=== PATIENT | male | born 1965 ===

== ENCOUNTER 2017-07-27 13:13 | Inpatient (IN) ==
[2017-07-27] MEDS ORDERED: NALOXONE 0.4 MG/ML VIAL IV STA (13:45)
[2017-07-27] MEDS ORDERED: NALOXONE 0.4 MG/ML VIAL ONE (14:04)
[2017-07-27 14:10] LABS: Basophils % 0.3 % (0.0-0.8); Eosinophils % 1.3 % (0.00-10.9); Hematocrit 20.3 VOL% (42.0-52.0); Hemoglobin 7.1 GM/DL (14.0-18.0); Lymphocytes % 6.9 % (21.2-54.2); Mean Corpuscular Hemoglobin 32 PG (27-34); Mean Corpuscular Volume 91.9 FL (87-102); Mean Platelet Volume 13.2 FL (9.6-12.0); Monocytes % 8.2 % (1.7-12.7); Neutrophils % 82.1 % (38.7-73.9); Platelet Count 164 T/CUMM (130-400); Red Blood Count 2.21 MC/CUMM (3.8-5.5); Red Cell Distribution Width 16.1 % (9.3-17.3); White Blood Count 17.7 T/CUMM (4-12)
[2017-07-27 14:11] LABS: Basophils # 0.1 10*3/uL (0.0-0.2); Eosinophils # 0.2 10*3/uL (0.0-0.87); Immature Granulocytes % 1.2 %; Immature Granulocytes Absolute 0.21 #; Lymphocytes # 1.2 10*3/uL (1.4-4.0); Monocytes # 1.5 10*3/uL (0.11-0.8); Neutrophils # 14.5 10*3/uL (1.4-7.4)
[2017-07-27 14:15] LABS: INR 1.1; PT Patient Result 11.4 SECS
[2017-07-27] MEDS ORDERED: VANCOMYCIN INJ 1,000 MG in SODIUM CHLORIDE 0.9% 250 ML IV STA (14:16)
[2017-07-27 14:22] LABS: Lactic Acid 1.3 MMOL/L (0.4-2.0)
[2017-07-27 14:23] LABS: Albumin 2.3 G/DL (3.4-5.0); Bilirubin,Total 0.4 MG/DL (0.2-1.0); Calcium 8.5 MG/DL (8.5-10.1); Osmolality,Calculated 293.4 MOS/KG (273-304); Total Protein 6.6 G/DL (6.4-8.3)
[2017-07-27 14:24] LABS: Troponin I Only 0.081 NG/ML (0.00-0.045)
[2017-07-27 14:25] LABS: Potassium 2.4 MMOL/L (3.5-5.1)
[2017-07-27] MEDS ORDERED: VANCOMYCIN 1,000 MG VIAL ONE (14:27)
[2017-07-27] MEDS ORDERED: ONDANSETRON 4 MG/2 ML VIAL IV PRN (17:19)
[2017-07-27] MEDS ORDERED: ACETAMINOPHEN 325 MG TABLET PO PRN (17:19)
[2017-07-27] MEDS ORDERED: SODIUM CHLORIDE 0.9% 1,000 ML IV PRN (17:28)
[2017-07-27] MEDS ORDERED: GLUCAGON 1 MG VIAL IM PRN (17:29)
[2017-07-27] MEDS ORDERED: DEXTROSE 50% 25 GM/50 ML VIAL IV PRN (17:29)
[2017-07-27] MEDS ORDERED: POTASSIUM CHLORIDE 20 MEQ/15 ML UDCUP PER TUBE ONE (18:00)
[2017-07-27] MEDS ORDERED: CEFEPIME IV SCH (19:30)
[2017-07-27] MEDS ORDERED: SODIUM CHLORIDE 0.9% IV SCH (19:30)
[2017-07-27] MEDS: INSULIN LISPRO 100 UNIT/ML SUBCUT SCH (21:00)
[2017-07-27] MEDS ORDERED: ALBUTEROL 2.5 MG/3 ML NEB RESP TX PRN (21:00)
[2017-07-27] MEDS: ISOSORBIDE DINITRATE 20 MG TABLET PEG SCH (21:23)
[2017-07-28 05:18] LABS: Basophils # 0.1 10*3/uL (0.0-0.2); Basophils % 0.5 % (0.0-0.8); Eosinophils # 0.6 10*3/uL (0.0-0.87); Eosinophils % 3.9 % (0.00-10.9); Hematocrit 30.4 VOL% (42.0-52.0); Hemoglobin 10.9 GM/DL (14.0-18.0); Immature Granulocytes % 0.6 %; Immature Granulocytes Absolute 0.09 #; Lymphocytes # 1.5 10*3/uL (1.4-4.0); Lymphocytes % 10.2 % (21.2-54.2); Mean Corpuscular HGB Conc 35.9 GM/DL (32-36); Mean Corpuscular Hemoglobin 32 PG (27-34); Mean Corpuscular Volume 89.9 FL (87-102); Mean Platelet Volume 13.1 FL (9.6-12.0); Monocytes # 1.4 10*3/uL (0.11-0.8); Monocytes % 9.3 % (1.7-12.7); Neutrophils # 11.3 10*3/uL (1.4-7.4); Neutrophils % 75.5 % (38.7-73.9); Platelet Count 158 T/CUMM (130-400); Red Cell Distribution Width 15.5 % (9.3-17.3)
[2017-07-28 05:33] LABS: Red Blood Count 3.38 MC/CUMM (3.8-5.5)
[2017-07-28 05:40] LABS: Calcium 8.3 MG/DL (8.5-10.1); Osmolality,Calculated 300.5 MOS/KG (273-304); Potassium 3.4 MMOL/L (3.5-5.1)
[2017-07-28] MEDS: ISOSORBIDE DINITRATE 20 MG TABLET PEG SCH ×2 (10:25→21:04)
[2017-07-28] MEDS: PANTOPRAZOLE 40 MG TABLET PO SCH (10:25)
[2017-07-28] MEDS: CEFEPIME IV SCH (10:26)
[2017-07-28] MEDS: INSULIN LISPRO 100 UNIT/ML SUBCUT SCH ×4 (10:26→21:03)
[2017-07-29] MEDS: POTASSIUM CHLORIDE 20 MEQ TABLET PO PRN ×2 (00:03→03:23)
[2017-07-29 04:12] LABS: Basophils # 0.1 10*3/uL (0.0-0.2); Basophils % 0.4 % (0.0-0.8); Eosinophils # 0.4 10*3/uL (0.0-0.87); Eosinophils % 2.8 % (0.00-10.9); Hemoglobin 11.2 GM/DL (14.0-18.0); Immature Granulocytes % 0.5 %; Immature Granulocytes Absolute 0.06 #; Lymphocytes % 15.4 % (21.2-54.2); Mean Corpuscular HGB Conc 36.1 GM/DL (32-36); Mean Corpuscular Hemoglobin 32 PG (27-34); Mean Corpuscular Volume 89.1 FL (87-102); Mean Platelet Volume 12.9 FL (9.6-12.0); Monocytes # 1.4 10*3/uL (0.11-0.8); Monocytes % 10.9 % (1.7-12.7); Neutrophils # 9.2 10*3/uL (1.4-7.4); Platelet Count 177 T/CUMM (130-400); Red Blood Count 3.48 MC/CUMM (3.8-5.5); Red Cell Distribution Width 16.2 % (9.3-17.3); White Blood Count 13.1 T/CUMM (4-12)
[2017-07-29 04:32] LABS: Calcium 8.4 MG/DL (8.5-10.1); Osmolality,Calculated 288.2 MOS/KG (273-304); Potassium 3.6 MMOL/L (3.5-5.1)
[2017-07-29 04:33] LABS: Calcium 8.4 MG/DL (8.5-10.1); Osmolality,Calculated 289.2 MOS/KG (273-304); Potassium 3.6 MMOL/L (3.5-5.1)
[2017-07-29] MEDS: ISOSORBIDE DINITRATE 20 MG TABLET PEG SCH ×2 (08:24→21:23)
[2017-07-29] MEDS: PANTOPRAZOLE 40 MG TABLET PO SCH (08:24)
[2017-07-29] MEDS: INSULIN LISPRO 100 UNIT/ML SUBCUT SCH ×4 (08:24→20:52)
[2017-07-29] MEDS: CEFEPIME IV SCH (08:24)
[2017-07-30 05:11] LABS: Basophils # 0.1 10*3/uL (0.0-0.2); Basophils % 0.4 % (0.0-0.8); Eosinophils # 0.5 10*3/uL (0.0-0.87); Eosinophils % 3.5 % (0.00-10.9); Hematocrit 32.1 VOL% (42.0-52.0); Hemoglobin 10.9 GM/DL (14.0-18.0); Immature Granulocytes % 0.8 %; Immature Granulocytes Absolute 0.11 #; Lymphocytes # 3.2 10*3/uL (1.4-4.0); Mean Corpuscular Hemoglobin 31 PG (27-34); Mean Corpuscular Volume 91.5 FL (87-102); Mean Platelet Volume 12.8 FL (9.6-12.0); Monocytes # 1.3 10*3/uL (0.11-0.8); Monocytes % 9.1 % (1.7-12.7); Neutrophils # 9.3 10*3/uL (1.4-7.4); Neutrophils % 64.2 % (38.7-73.9); Platelet Count 216 T/CUMM (130-400); Red Blood Count 3.51 MC/CUMM (3.8-5.5); Red Cell Distribution Width 16.1 % (9.3-17.3); White Blood Count 14.5 T/CUMM (4-12)
[2017-07-30 05:54] LABS: Calcium 8.5 MG/DL (8.5-10.1); Osmolality,Calculated 295.4 MOS/KG (273-304); Potassium 4.3 MMOL/L (3.5-5.1); Prealbumin 20.5 MG/DL (20-40)
[2017-07-30 05:59] LABS: Microcytosis 1+
[2017-07-30 06:00] LABS: Platelet Estimate Normal
[2017-07-30] MEDS ORDERED: DEXTROSE 50% 25 GM/50 ML VIAL IV PRN (07:15)
[2017-07-30] MEDS ORDERED: GLUCAGON 1 MG VIAL IM PRN (07:15)
[2017-07-30] MEDS ORDERED: VANCOMYCIN INJ 750 MG in SODIUM CHLORIDE 0.9% 250 ML IV PRN (09:00)
[2017-07-30] MEDS ORDERED: VANCOMYCIN INJ 500 MG in SODIUM CHLORIDE 0.9% 100 ML IV PRN (09:00)
[2017-07-30] MEDS: CEFEPIME IV SCH (10:26)
[2017-07-30] MEDS: PANTOPRAZOLE 40 MG TABLET PO SCH (10:41)
[2017-07-30] MEDS: ISOSORBIDE DINITRATE 20 MG TABLET PEG SCH ×2 (10:41→21:13)
[2017-07-30] MEDS: INSULIN LISPRO 100 UNIT/ML SUBCUT SCH ×2 (13:55→18:47)
[2017-07-30] MEDS: ZINC OXIDE PASTE 113 GM TUBE TOP SCH ×2 (14:15→21:13)
[2017-07-30] MEDS ORDERED: VANCOMYCIN INJ 500 MG in SODIUM CHLORIDE 0.9% 100 ML IV ONE (18:00)
[2017-07-30] MEDS: BACITRACIN OINT 0.9 GM PACK TOP SCH (18:35)
[2017-07-31] MEDS: INSULIN LISPRO 100 UNIT/ML SUBCUT SCH ×4 (00:52→18:10)
[2017-07-31 01:34] LABS: Apearance,Urine CLOUDY (Clear); Bilirubin,Urine Negative (Negative); Blood, Urine Moderate mg/dL (Negative); Glucose,Urine (UA) 150 mg/dL (Negative); Ketones,Urine Negative (Negative); Nitrite,Urine Negative (Negative); Protein,Urine >=500 MG/DL; RBC,Urine 34 /HPF (0-4); Squamous Epithelial Cell,Urine Occasional /HPF (0-10); Urine Color Yellow (Yellow); Urine Specific Gravity 1.012 (1.001-1.035); Urine Urobilinogen < 2.0 EU/DL (0.2-1.0); WBC,Urine 45 /HPF (0-6)
[2017-07-31 06:37] LABS: Basophils # 0.1 10*3/uL (0.0-0.2); Basophils % 0.4 % (0.0-0.8); Eosinophils # 0.4 10*3/uL (0.0-0.87); Hematocrit 32.4 VOL% (42.0-52.0); Hemoglobin 11.3 GM/DL (14.0-18.0); Immature Granulocytes % 0.7 %; Lymphocytes # 2.9 10*3/uL (1.4-4.0); Lymphocytes % 20.6 % (21.2-54.2); Mean Corpuscular HGB Conc 34.9 GM/DL (32-36); Mean Corpuscular Hemoglobin 32 PG (27-34); Mean Corpuscular Volume 90.5 FL (87-102); Mean Platelet Volume 12.5 FL (9.6-12.0); Monocytes # 1.2 10*3/uL (0.11-0.8); Monocytes % 8.2 % (1.7-12.7); Neutrophils # 9.5 10*3/uL (1.4-7.4); Neutrophils % 67.1 % (38.7-73.9); Platelet Count 260 T/CUMM (130-400); Red Blood Count 3.58 MC/CUMM (3.8-5.5); White Blood Count 14.1 T/CUMM (4-12)
[2017-07-31 07:05] LABS: Albumin 2.4 G/DL (3.4-5.0); Bilirubin,Total 0.7 MG/DL (0.2-1.0); Calcium 8.5 MG/DL (8.5-10.1); Osmolality,Calculated 302.2 MOS/KG (273-304); Potassium 4.5 MMOL/L (3.5-5.1); Total Protein 6.6 G/DL (6.4-8.3)
[2017-07-31 07:08] LABS: Eosinophils 4 % (0-10); Lymphocytes 22 % (20-55); Platelet Estimate Adequate; Segmented Neutrophils 67 % (50-85); Total Cells Counted 100
[2017-07-31 07:09] LABS: Giant Platelets Few; Hypochromasia Slight; Microcytosis Slight
[2017-07-31] MEDS: PANTOPRAZOLE 40 MG TABLET PO SCH (08:02)
[2017-07-31] MEDS: BACITRACIN OINT 0.9 GM PACK TOP SCH (08:02)
[2017-07-31] MEDS: ZINC OXIDE PASTE 113 GM TUBE TOP SCH ×2 (08:02→22:00)
[2017-07-31] MEDS: ISOSORBIDE DINITRATE 20 MG TABLET PEG SCH ×2 (08:02→22:01)
[2017-07-31] MEDS ORDERED: VANCOMYCIN INJ 500 MG in SODIUM CHLORIDE 0.9% 100 ML IV ONE (12:00)
[2017-07-31] MEDS: hydrALAZINE 20 MG/1 ML VIAL IV PRN (16:17)
[2017-08-01] MEDS: INSULIN LISPRO 100 UNIT/ML SUBCUT SCH ×4 (00:10→18:24)
[2017-08-01] MEDS: ZINC OXIDE PASTE 113 GM TUBE TOP SCH ×2 (08:52→20:41)
[2017-08-01] MEDS: PANTOPRAZOLE 40 MG TABLET PO SCH (08:52)
[2017-08-01] MEDS: BACITRACIN OINT 0.9 GM PACK TOP SCH (08:52)
[2017-08-01] MEDS: ISOSORBIDE DINITRATE 20 MG TABLET PEG SCH ×2 (08:52→20:40)
[2017-08-02] MEDS: INSULIN LISPRO 100 UNIT/ML SUBCUT SCH ×4 (00:30→17:10)
[2017-08-02] MEDS: hydrALAZINE 20 MG/1 ML VIAL IV PRN (05:53)
[2017-08-02 07:10] LABS: Calcium 8.3 MG/DL (8.5-10.1); Osmolality,Calculated 296.2 MOS/KG (273-304); Potassium 4.7 MMOL/L (3.5-5.1)
[2017-08-02] MEDS: ZINC OXIDE PASTE 113 GM TUBE TOP SCH ×2 (10:30→21:23)
[2017-08-02] MEDS: ISOSORBIDE DINITRATE 20 MG TABLET PEG SCH ×2 (10:30→21:23)
[2017-08-02] MEDS: PANTOPRAZOLE 40 MG TABLET PO SCH (10:30)
[2017-08-02] MEDS: BACITRACIN OINT 0.9 GM PACK TOP SCH (10:30)
[2017-08-03] MEDS: INSULIN LISPRO 100 UNIT/ML SUBCUT SCH ×4 (01:57→17:23)
[2017-08-03 07:57] LABS: Basophils # 0.1 10*3/uL (0.0-0.2); Basophils % 0.6 % (0.0-0.8); Eosinophils # 0.5 10*3/uL (0.0-0.87); Eosinophils % 4.1 % (0.00-10.9); Hematocrit 32.4 VOL% (42.0-52.0); Hemoglobin 10.9 GM/DL (14.0-18.0); Immature Granulocytes % 0.7 %; Immature Granulocytes Absolute 0.09 #; Lymphocytes # 2.9 10*3/uL (1.4-4.0); Lymphocytes % 22.7 % (21.2-54.2); Mean Corpuscular HGB Conc 33.6 GM/DL (32-36); Mean Corpuscular Hemoglobin 32 PG (27-34); Mean Corpuscular Volume 94.7 FL (87-102); Mean Platelet Volume 11.6 FL (9.6-12.0); Monocytes # 0.8 10*3/uL (0.11-0.8); Monocytes % 5.9 % (1.7-12.7); Neutrophils # 8.3 10*3/uL (1.4-7.4); Platelet Count 340 T/CUMM (130-400); Red Blood Count 3.42 MC/CUMM (3.8-5.5); Red Cell Distribution Width 15.2 % (9.3-17.3); White Blood Count 12.6 T/CUMM (4-12)
[2017-08-03 08:21] LABS: Calcium 8.4 MG/DL (8.5-10.1); Osmolality,Calculated 305.2 MOS/KG (273-304); Potassium 4.8 MMOL/L (3.5-5.1)
[2017-08-03] MEDS ORDERED: cloNIDine 0.3 MG/24 HR PATCH TRANSDERM SCH (09:00)
[2017-08-03] MEDS: BACITRACIN OINT 0.9 GM PACK TOP SCH (10:03)
[2017-08-03] MEDS: ISOSORBIDE DINITRATE 20 MG TABLET PEG SCH ×2 (10:06→21:31)
[2017-08-03] MEDS: ZINC OXIDE PASTE 113 GM TUBE TOP SCH ×2 (10:06→21:31)
[2017-08-03] MEDS: PANTOPRAZOLE 40 MG TABLET PO SCH (10:06)
[2017-08-03] MEDS: hydrALAZINE 20 MG/1 ML VIAL IV PRN (10:15)
[2017-08-03] MEDS: METOPROLOL TARTRATE 100 MG TABLET PEG SCH ×2 (13:23→21:31)
[2017-08-03] MEDS: ZINC OXIDE 20% OINT 28.35 GM TUBE TOP SCH ×2 (13:23→17:30)
[2017-08-03] MEDS: SIMVASTATIN 20 MG TABLET PEG SCH (21:31)
[2017-08-04] MEDS: INSULIN LISPRO 100 UNIT/ML SUBCUT SCH ×4 (01:43→17:41)
[2017-08-04] MEDS: ZINC OXIDE 20% OINT 28.35 GM TUBE TOP SCH ×3 (04:33→17:42)
[2017-08-04 07:17] LABS: Basophils # 0.1 10*3/uL (0.0-0.2); Basophils % 0.6 % (0.0-0.8); Eosinophils # 0.6 10*3/uL (0.0-0.87); Eosinophils % 4.5 % (0.00-10.9); Hematocrit 31.5 VOL% (42.0-52.0); Hemoglobin 10.6 GM/DL (14.0-18.0); Immature Granulocytes % 0.8 %; Lymphocytes % 23.8 % (21.2-54.2); Mean Corpuscular HGB Conc 33.7 GM/DL (32-36); Mean Corpuscular Hemoglobin 32 PG (27-34); Mean Corpuscular Volume 93.8 FL (87-102); Mean Platelet Volume 10.9 FL (9.6-12.0); Monocytes # 0.6 10*3/uL (0.11-0.8); Monocytes % 4.9 % (1.7-12.7); Neutrophils # 8.2 10*3/uL (1.4-7.4); Neutrophils % 65.4 % (38.7-73.9); Platelet Count 361 T/CUMM (130-400); Red Blood Count 3.36 MC/CUMM (3.8-5.5); Red Cell Distribution Width 15.1 % (9.3-17.3); White Blood Count 12.5 T/CUMM (4-12)
[2017-08-04 08:24] LABS: Albumin 2.3 G/DL (3.4-5.0); Bilirubin,Total 0.4 MG/DL (0.2-1.0); Calcium 8.6 MG/DL (8.5-10.1); Osmolality,Calculated 308.5 MOS/KG (273-304); Potassium 4.7 MMOL/L (3.5-5.1)
[2017-08-04] MEDS: amLODIPine 10 MG TABLET PEG SCH (09:05)
[2017-08-04] MEDS: LOSARTAN/HCTZ 50-12.5 MG TABLET PEG SCH (09:05)
[2017-08-04] MEDS: ISOSORBIDE DINITRATE 20 MG TABLET PEG SCH ×2 (09:05→22:08)
[2017-08-04] MEDS: PANTOPRAZOLE 40 MG TABLET PO SCH (09:05)
[2017-08-04] MEDS: METOPROLOL TARTRATE 100 MG TABLET PEG SCH ×2 (09:06→22:08)
[2017-08-04] MEDS: ZINC OXIDE PASTE 113 GM TUBE TOP SCH ×2 (09:06→22:08)
[2017-08-04] MEDS ORDERED: VANCOMYCIN INJ 500 MG in SODIUM CHLORIDE 0.9% 100 ML IV ONE (10:00)
[2017-08-04] MEDS: BACITRACIN OINT 0.9 GM PACK TOP SCH (12:28)
[2017-08-04] MEDS: SIMVASTATIN 20 MG TABLET PEG SCH (22:08)
[2017-08-05] MEDS: INSULIN LISPRO 100 UNIT/ML SUBCUT SCH ×4 (00:56→18:17)
[2017-08-05] MEDS: ZINC OXIDE 20% OINT 28.35 GM TUBE TOP SCH ×3 (01:45→18:17)
[2017-08-05] MEDS: amLODIPine 10 MG TABLET PEG SCH (09:10)
[2017-08-05] MEDS: METOPROLOL TARTRATE 100 MG TABLET PEG SCH ×2 (09:10→22:07)
[2017-08-05] MEDS: BACITRACIN OINT 0.9 GM PACK TOP SCH (09:10)
[2017-08-05] MEDS: LOSARTAN/HCTZ 50-12.5 MG TABLET PEG SCH (09:10)
[2017-08-05] MEDS: ZINC OXIDE PASTE 113 GM TUBE TOP SCH ×2 (09:10→22:08)
[2017-08-05] MEDS: ISOSORBIDE DINITRATE 20 MG TABLET PEG SCH ×2 (09:10→22:07)
[2017-08-05] MEDS: PANTOPRAZOLE 40 MG TABLET PO SCH (09:10)
[2017-08-05] MEDS: SIMVASTATIN 20 MG TABLET PEG SCH (22:07)
[2017-08-06] MEDS: INSULIN LISPRO 100 UNIT/ML SUBCUT SCH ×4 (01:06→18:18)
[2017-08-06] MEDS: ZINC OXIDE 20% OINT 28.35 GM TUBE TOP SCH ×3 (04:36→18:11)
[2017-08-06 05:26] LABS: Basophils # 0.1 10*3/uL (0.0-0.2); Basophils % 0.6 % (0.0-0.8); Eosinophils # 0.5 10*3/uL (0.0-0.87); Eosinophils % 3.2 % (0.00-10.9); Hematocrit 32.8 VOL% (42.0-52.0); Hemoglobin 11.1 GM/DL (14.0-18.0); Immature Granulocytes % 0.6 %; Immature Granulocytes Absolute 0.08 #; Lymphocytes # 2.4 10*3/uL (1.4-4.0); Mean Corpuscular HGB Conc 33.8 GM/DL (32-36); Mean Corpuscular Hemoglobin 31 PG (27-34); Mean Corpuscular Volume 92.4 FL (87-102); Mean Platelet Volume 11.2 FL (9.6-12.0); Monocytes # 0.5 10*3/uL (0.11-0.8); Monocytes % 3.7 % (1.7-12.7); Neutrophils # 10.7 10*3/uL (1.4-7.4); Neutrophils % 74.9 % (38.7-73.9); Platelet Count 388 T/CUMM (130-400); Red Blood Count 3.55 MC/CUMM (3.8-5.5); Red Cell Distribution Width 14.6 % (9.3-17.3); White Blood Count 14.2 T/CUMM (4-12)
[2017-08-06 06:03] LABS: Albumin 2.5 G/DL (3.4-5.0); Calcium 8.7 MG/DL (8.5-10.1); Osmolality,Calculated 318.5 MOS/KG (273-304); Potassium 5.3 MMOL/L (3.5-5.1); Total Protein 7.1 G/DL (6.4-8.3)
[2017-08-06] MEDS: LOSARTAN/HCTZ 50-12.5 MG TABLET PEG SCH (08:12)
[2017-08-06] MEDS: METOPROLOL TARTRATE 100 MG TABLET PEG SCH ×2 (08:12→22:10)
[2017-08-06] MEDS: amLODIPine 10 MG TABLET PEG SCH (08:12)
[2017-08-06] MEDS: ISOSORBIDE DINITRATE 20 MG TABLET PEG SCH ×2 (08:12→22:10)
[2017-08-06] MEDS: PANTOPRAZOLE 40 MG TABLET PO SCH (08:12)
[2017-08-06] MEDS: BACITRACIN OINT 0.9 GM PACK TOP SCH (10:08)
[2017-08-06] MEDS: ZINC OXIDE PASTE 113 GM TUBE TOP SCH ×2 (10:08→22:10)
[2017-08-06] MEDS ORDERED: BUPIVACAINE MPF 0.25% /EPI 30 ML VIAL ONE (12:14)
[2017-08-06] MEDS ORDERED: LIDOCAINE 1%/EPI INJ 20 ML VIAL ONE (12:14)
[2017-08-06] MEDS ORDERED: HEPARIN 5,000 UNIT/1 ML VIAL ONE (12:14)
[2017-08-06] MEDS ORDERED: LABETALOL 20 MG/4 ML SYRINGE IV ONE (13:36)
[2017-08-06] MEDS ORDERED: PROPOFOL 200 MG/20 ML VIAL IV ONE (13:36)
[2017-08-06] MEDS ORDERED: VANCOMYCIN INJ 500 MG in SODIUM CHLORIDE 0.9% 100 ML IV ONE ×2 (18:00→21:00)
[2017-08-06] MEDS ORDERED: HEPARIN 10,000 UNIT/10 ML VIAL IV PRN (18:00)
[2017-08-06] MEDS: SIMVASTATIN 20 MG TABLET PEG SCH (22:09)
[2017-08-07] MEDS: INSULIN LISPRO 100 UNIT/ML SUBCUT SCH ×4 (03:12→17:06)
[2017-08-07] MEDS: ZINC OXIDE 20% OINT 28.35 GM TUBE TOP SCH ×3 (03:13→17:47)
[2017-08-07 05:58] LABS: Basophils # 0.1 10*3/uL (0.0-0.2); Basophils % 0.6 % (0.0-0.8); Eosinophils # 0.2 10*3/uL (0.0-0.87); Eosinophils % 1.6 % (0.00-10.9); Hematocrit 30.4 VOL% (42.0-52.0); Hemoglobin 10.5 GM/DL (14.0-18.0); Immature Granulocytes % 0.5 %; Immature Granulocytes Absolute 0.06 #; Lymphocytes # 2.1 10*3/uL (1.4-4.0); Lymphocytes % 17.5 % (21.2-54.2); Mean Corpuscular HGB Conc 34.5 GM/DL (32-36); Mean Corpuscular Hemoglobin 32 PG (27-34); Mean Corpuscular Volume 91.6 FL (87-102); Mean Platelet Volume 11.3 FL (9.6-12.0); Monocytes # 0.6 10*3/uL (0.11-0.8); Neutrophils # 9.1 10*3/uL (1.4-7.4); Neutrophils % 74.8 % (38.7-73.9); Platelet Count 385 T/CUMM (130-400); Red Blood Count 3.32 MC/CUMM (3.8-5.5); Red Cell Distribution Width 14.6 % (9.3-17.3); White Blood Count 12.2 T/CUMM (4-12)
[2017-08-07 06:27] LABS: Calcium 8.4 MG/DL (8.5-10.1); Osmolality,Calculated 286.2 MOS/KG (273-304); Potassium 4.8 MMOL/L (3.5-5.1)
[2017-08-07] MEDS: PANTOPRAZOLE 40 MG TABLET PO SCH (09:04)
[2017-08-07] MEDS: CALCIUM (CARBONATE) 500 MG TABLET PO SCH ×3 (09:04→21:40)
[2017-08-07] MEDS: amLODIPine 10 MG TABLET PEG SCH (09:04)
[2017-08-07] MEDS: LOSARTAN/HCTZ 50-12.5 MG TABLET PEG SCH (09:04)
[2017-08-07] MEDS: ISOSORBIDE DINITRATE 20 MG TABLET PEG SCH ×2 (09:04→21:40)
[2017-08-07] MEDS: BACITRACIN OINT 0.9 GM PACK TOP SCH (09:05)
[2017-08-07] MEDS: METOPROLOL TARTRATE 100 MG TABLET PEG SCH (09:05)
[2017-08-07] MEDS: ZINC OXIDE PASTE 113 GM TUBE TOP SCH ×2 (09:05→22:01)
[2017-08-07] MEDS: METOPROLOL TARTRATE 50 MG TABLET PEG SCH (21:40)
[2017-08-07] MEDS: SIMVASTATIN 20 MG TABLET PEG SCH (21:41)
[2017-08-08] MEDS: ZINC OXIDE 20% OINT 28.35 GM TUBE TOP SCH ×2 (04:13→14:39)
[2017-08-08 06:21] LABS: Basophils # 0.1 10*3/uL (0.0-0.2); Basophils % 0.6 % (0.0-0.8); Eosinophils # 0.3 10*3/uL (0.0-0.87); Eosinophils % 2.6 % (0.00-10.9); Hematocrit 28.5 VOL% (42.0-52.0); Hemoglobin 9.6 GM/DL (14.0-18.0); Immature Granulocytes % 0.4 %; Immature Granulocytes Absolute 0.05 #; Lymphocytes % 24.3 % (21.2-54.2); Mean Corpuscular HGB Conc 33.7 GM/DL (32-36); Mean Corpuscular Hemoglobin 32 PG (27-34); Mean Platelet Volume 11.1 FL (9.6-12.0); Monocytes # 0.7 10*3/uL (0.11-0.8); Monocytes % 5.8 % (1.7-12.7); Neutrophils # 8.3 10*3/uL (1.4-7.4); Neutrophils % 66.3 % (38.7-73.9); Platelet Count 320 T/CUMM (130-400); Red Cell Distribution Width 14.3 % (9.3-17.3); White Blood Count 12.5 T/CUMM (4-12)
[2017-08-08 06:48] LABS: Calcium 8.8 MG/DL (8.5-10.1); Osmolality,Calculated 294.2 MOS/KG (273-304); Potassium 4.5 MMOL/L (3.5-5.1)
[2017-08-08] MEDS: INSULIN LISPRO 100 UNIT/ML SUBCUT SCH ×3 (07:15→14:28)
[2017-08-08] MEDS ORDERED: VANCOMYCIN INJ 750 MG in SODIUM CHLORIDE 0.9% 250 ML IV PRN (08:00)
[2017-08-08] MEDS: ISOSORBIDE DINITRATE 20 MG TABLET PEG SCH (10:01)
[2017-08-08] MEDS: LOSARTAN/HCTZ 50-12.5 MG TABLET PEG SCH (10:01)
[2017-08-08] MEDS: METOPROLOL TARTRATE 50 MG TABLET PEG SCH (10:01)
[2017-08-08] MEDS: amLODIPine 10 MG TABLET PEG SCH (10:02)
[2017-08-08] MEDS: PANTOPRAZOLE 40 MG TABLET PO SCH (10:02)
[2017-08-08] MEDS: CALCIUM (CARBONATE) 500 MG TABLET PO SCH ×2 (10:02→14:39)
[2017-08-08] MEDS ORDERED: VANCOMYCIN INJ 750 MG in SODIUM CHLORIDE 0.9% 250 ML IV ONE (12:00)
[2017-08-08] MEDS: ZINC OXIDE PASTE 113 GM TUBE TOP SCH (14:39)
[2017-08-08] MEDS: BACITRACIN OINT 0.9 GM PACK TOP SCH (14:39)
[2017-08-08 15:41] VITALS: BP 155/80
== END 2017-08-08 17:48 | DRG 871 ==
LOC: EDBD → EDUNIT# → N.ED 13:13 → SUATTDRO 15:37 → N.EDINP 15:37 → N.2E 16:29
PROVIDERS: ADMIT Internal Medicine; ATTEND Internal Medicine

== ENCOUNTER 2017-08-17 17:59 | Inpatient (IN) ==
[2017-08-17] MEDS ORDERED: PANTOPRAZOLE 40 MG VIAL IV STA (18:30)
[2017-08-17] MEDS ORDERED: PANTOPRAZOLE 40 MG VIAL IV ONE ×4 (18:48→22:42)
[2017-08-17 19:27] LABS: INR 1.1; PT Patient Result 11.6 SECS
[2017-08-17 19:31] LABS: Basophils % 0.3 % (0.0-0.8); Eosinophils # 0.3 10*3/uL (0.0-0.87); Immature Granulocytes % 0.4 %; Immature Granulocytes Absolute 0.04 #; Lymphocytes # 2.6 10*3/uL (1.4-4.0); Lymphocytes % 26.2 % (21.2-54.2); Mean Corpuscular HGB Conc 34.8 GM/DL (32-36); Mean Corpuscular Hemoglobin 33 PG (27-34); Mean Platelet Volume 13.7 FL (9.6-12.0); Monocytes # 0.7 10*3/uL (0.11-0.8); Monocytes % 6.8 % (1.7-12.7); Neutrophils # 6.3 10*3/uL (1.4-7.4); Neutrophils % 63.3 % (38.7-73.9); Platelet Count 122 T/CUMM (130-400); Red Cell Distribution Width 13.6 % (9.3-17.3); White Blood Count 9.9 T/CUMM (4-12)
[2017-08-17 19:38] LABS: Hematocrit 14.1 VOL% (42.0-52.0); Hemoglobin 4.9 GM/DL (14.0-18.0)
[2017-08-17 19:42] LABS: Alanine Aminotransferase 203 U/L (16-61); Albumin 2.5 G/DL (3.4-5.0); Alkaline Phosphatase 225 U/L (45-117); Aspartate Amino Transferase 196 U/L (0-37); Bilirubin,Total < 0.39 MG/DL (0.2-1.0); Blood Urea Nitrogen 21 MG/DL (7-18); Calcium 8.4 MG/DL (8.5-10.1); Glucose 142 MG/DL (74-106); Osmolality,Calculated 277.8 MOS/KG (273-304); Potassium 3.1 MMOL/L (3.5-5.1); Sodium 137 MMOL/L (136-145); Total Protein 7.1 G/DL (6.4-8.3); Troponin I Only 0.025 NG/ML (0.00-0.045)
[2017-08-17 19:57] LABS: Partial Thromboplastin Time 54.7 SECS (0-40)
[2017-08-17] MEDS ORDERED: SODIUM CHLORIDE 0.9% 1,000 ML IV PRN (21:04)
[2017-08-17] MEDS ORDERED: ONDANSETRON 4 MG/2 ML VIAL IV PRN (21:05)
[2017-08-17] MEDS ORDERED: VANCOMYCIN 5,000 MG VIAL IV PRN (21:10)
[2017-08-17] MEDS ORDERED: DEXTROSE 50% 25 GM/50 ML VIAL IV PRN (21:12)
[2017-08-17] MEDS ORDERED: GLUCAGON 1 MG VIAL IM PRN (21:12)
[2017-08-17] MEDS ORDERED: VANCOMYCIN INJ 1,000 MG in SODIUM CHLORIDE 0.9% 250 ML IV SCH (22:00)
[2017-08-17] MEDS ORDERED: VANCOMYCIN INJ 500 MG in SODIUM CHLORIDE 0.9% 100 ML IV PRN (22:17)
[2017-08-17] MEDS: PANTOPRAZOLE INJ 200 MG in SODIUM CHLORIDE 0.9% 250 ML IV SCH (23:17)
[2017-08-18] MEDS: hydrALAZINE 20 MG/1 ML VIAL IV PRN (00:13)
[2017-08-18] MEDS: INSULIN REGULAR 100 UNIT/ML SUBCUT SCH ×4 (00:15→18:14)
[2017-08-18 04:36] LABS: Basophils # 0.1 10*3/uL (0.0-0.2); Eosinophils # 0.3 10*3/uL (0.0-0.87); Eosinophils % 3.6 % (0.00-10.9); Hematocrit 25.1 VOL% (42.0-52.0); Hemoglobin 8.6 GM/DL (14.0-18.0); Immature Granulocytes % 0.1 %; Immature Granulocytes Absolute 0.01 #; Lymphocytes # 2.3 10*3/uL (1.4-4.0); Lymphocytes % 28.8 % (21.2-54.2); Mean Corpuscular HGB Conc 34.3 GM/DL (32-36); Mean Corpuscular Hemoglobin 30 PG (27-34); Mean Platelet Volume 13.4 FL (9.6-12.0); Monocytes # 0.7 10*3/uL (0.11-0.8); Neutrophils # 4.6 10*3/uL (1.4-7.4); Neutrophils % 57.5 % (38.7-73.9); Platelet Count 112 T/CUMM (130-400); Red Blood Count 2.92 MC/CUMM (3.8-5.5); Red Cell Distribution Width 16.3 % (9.3-17.3)
[2017-08-18 05:02] LABS: Calcium 8.3 MG/DL (8.5-10.1); Osmolality,Calculated 282.7 MOS/KG (273-304); Potassium 3.3 MMOL/L (3.5-5.1)
[2017-08-18] MEDS: ALBUTEROL 2.5 MG/3 ML NEB RESP TX SCH ×4 (07:50→19:25)
[2017-08-18] MEDS: POTASSIUM CHLORIDE 20 MEQ/15 ML UDCUP PER TUBE PRN ×3 (13:43→18:15)
[2017-08-18] MEDS: PANTOPRAZOLE INJ 200 MG in SODIUM CHLORIDE 0.9% 250 ML IV SCH ×2 (23:15→23:16)
[2017-08-19] MEDS: hydrALAZINE 20 MG/1 ML VIAL IV PRN ×2 (00:31→05:32)
[2017-08-19] MEDS: INSULIN REGULAR 100 UNIT/ML SUBCUT SCH ×5 (00:47→23:41)
[2017-08-19 00:58] LABS: Basophils # 0.1 10*3/uL (0.0-0.2); Eosinophils # 0.3 10*3/uL (0.0-0.87); Eosinophils % 3.5 % (0.00-10.9); Hematocrit 25.3 VOL% (42.0-52.0); Hemoglobin 8.8 GM/DL (14.0-18.0); Immature Granulocytes % 0.3 %; Immature Granulocytes Absolute 0.02 #; Lymphocytes # 1.9 10*3/uL (1.4-4.0); Mean Corpuscular HGB Conc 34.8 GM/DL (32-36); Mean Corpuscular Hemoglobin 30 PG (27-34); Mean Corpuscular Volume 87.5 FL (87-102); Monocytes # 0.7 10*3/uL (0.11-0.8); Monocytes % 9.1 % (1.7-12.7); Neutrophils # 4.7 10*3/uL (1.4-7.4); Neutrophils % 61.1 % (38.7-73.9); Platelet Count 112 T/CUMM (130-400); Red Blood Count 2.89 MC/CUMM (3.8-5.5); Red Cell Distribution Width 16.4 % (9.3-17.3); White Blood Count 7.7 T/CUMM (4-12)
[2017-08-19] MEDS: ALBUTEROL 2.5 MG/3 ML NEB RESP TX SCH ×4 (07:20→19:48)
[2017-08-19] MEDS: ISOSORBIDE DINITRATE 20 MG TABLET PEG SCH ×2 (12:36→21:10)
[2017-08-19] MEDS: LOSARTAN/HCTZ 50-12.5 MG TABLET PEG SCH (12:37)
[2017-08-19] MEDS: amLODIPine 10 MG TABLET PEG SCH (12:37)
[2017-08-20 06:22] LABS: Basophils # 0.1 10*3/uL (0.0-0.2); Basophils % 1.1 % (0.0-0.8); Eosinophils # 0.5 10*3/uL (0.0-0.87); Hematocrit 26.3 VOL% (42.0-52.0); Hemoglobin 8.7 GM/DL (14.0-18.0); Immature Granulocytes % 0.3 %; Immature Granulocytes Absolute 0.03 #; Lymphocytes # 2.2 10*3/uL (1.4-4.0); Lymphocytes % 23.8 % (21.2-54.2); Mean Corpuscular HGB Conc 33.1 GM/DL (32-36); Mean Corpuscular Hemoglobin 31 PG (27-34); Mean Corpuscular Volume 92.6 FL (87-102); Mean Platelet Volume 12.9 FL (9.6-12.0); Monocytes # 0.7 10*3/uL (0.11-0.8); Monocytes % 7.9 % (1.7-12.7); Neutrophils # 5.8 10*3/uL (1.4-7.4); Neutrophils % 61.9 % (38.7-73.9); Platelet Count 123 T/CUMM (130-400); Red Blood Count 2.84 MC/CUMM (3.8-5.5); Red Cell Distribution Width 16.5 % (9.3-17.3); White Blood Count 9.4 T/CUMM (4-12)
[2017-08-20] MEDS: INSULIN REGULAR 100 UNIT/ML SUBCUT SCH ×3 (06:41→21:50)
[2017-08-20] MEDS: ALBUTEROL 2.5 MG/3 ML NEB RESP TX SCH ×4 (06:58→19:25)
[2017-08-20 07:04] LABS: % Iron Saturation 29.3 % (18-50); Calcium 8.7 MG/DL (8.5-10.1); Ferritin 621.9 ng/ml (26-388); Osmolality,Calculated 294.1 MOS/KG (273-304); Potassium 3.9 MMOL/L (3.5-5.1)
[2017-08-20 07:16] LABS: Folate > 24.0 NG/ML (5.4-24.0); Vitamin B12 980 PG/ML (211-911)
[2017-08-20 08:49] LABS: Sedimentation Rate-Westergren 101 MM/HR (0-20)
[2017-08-20 09:09] LABS: Hemoglobin A1 (Alkaline) 97.1 % (96.5-98.5); Hemoglobin A2 (Alkaline) 2.9 % (1.5-3.5)
[2017-08-20] MEDS: PANTOPRAZOLE 40 MG VIAL IV SCH (09:29)
[2017-08-20] MEDS: amLODIPine 10 MG TABLET PEG SCH (09:35)
[2017-08-20] MEDS: ISOSORBIDE DINITRATE 20 MG TABLET PEG SCH ×2 (09:35→21:49)
[2017-08-20] MEDS: LOSARTAN/HCTZ 50-12.5 MG TABLET PEG SCH (09:35)
[2017-08-20] MEDS ORDERED: PROPOFOL 200 MG/20 ML VIAL IV ONE (12:32)
[2017-08-20] MEDS ORDERED: LIDOCAINE 2% 5 ML VIAL ONE (12:32)
[2017-08-20] MEDS ORDERED: HEPARIN 10,000 UNIT/10 ML VIAL IV PRN (15:17)
[2017-08-20] MEDS ORDERED: VANCOMYCIN INJ 500 MG in SODIUM CHLORIDE 0.9% 100 ML IV ONE (18:00)
[2017-08-21] MEDS: INSULIN REGULAR 100 UNIT/ML SUBCUT SCH ×4 (03:47→18:20)
[2017-08-21 07:24] LABS: Basophils # 0.1 10*3/uL (0.0-0.2); Basophils % 0.9 % (0.0-0.8); Eosinophils # 0.4 10*3/uL (0.0-0.87); Eosinophils % 3.6 % (0.00-10.9); Hematocrit 27.6 VOL% (42.0-52.0); Hemoglobin 9.1 GM/DL (14.0-18.0); Immature Granulocytes % 0.2 %; Immature Granulocytes Absolute 0.02 #; Lymphocytes # 2.6 10*3/uL (1.4-4.0); Lymphocytes % 25.2 % (21.2-54.2); Mean Corpuscular Hemoglobin 30 PG (27-34); Mean Platelet Volume 12.2 FL (9.6-12.0); Monocytes # 0.8 10*3/uL (0.11-0.8); Monocytes % 7.5 % (1.7-12.7); Neutrophils # 6.4 10*3/uL (1.4-7.4); Neutrophils % 62.6 % (38.7-73.9); Platelet Count 150 T/CUMM (130-400); Red Cell Distribution Width 16.8 % (9.3-17.3); White Blood Count 10.2 T/CUMM (4-12)
[2017-08-21] MEDS: ALBUTEROL 2.5 MG/3 ML NEB RESP TX SCH ×4 (07:43→20:27)
[2017-08-21 07:53] LABS: Calcium 8.6 MG/DL (8.5-10.1); Osmolality,Calculated 284.4 MOS/KG (273-304); Potassium 3.8 MMOL/L (3.5-5.1); Prealbumin 29.4 MG/DL (20-40)
[2017-08-21 07:56] LABS: Calcium 8.5 MG/DL (8.5-10.1); Osmolality,Calculated 285.4 MOS/KG (273-304); Potassium 3.9 MMOL/L (3.5-5.1)
[2017-08-21] MEDS: LOSARTAN/HCTZ 50-12.5 MG TABLET PEG SCH (08:46)
[2017-08-21] MEDS: amLODIPine 10 MG TABLET PEG SCH (08:46)
[2017-08-21] MEDS: ISOSORBIDE DINITRATE 20 MG TABLET PEG SCH ×2 (08:46→20:58)
[2017-08-21] MEDS: PANTOPRAZOLE 40 MG VIAL IV SCH (08:46)
[2017-08-21] MEDS: hydrALAZINE 20 MG/1 ML VIAL IV PRN (20:59)
[2017-08-22] MEDS: INSULIN REGULAR 100 UNIT/ML SUBCUT SCH ×3 (01:13→12:50)
[2017-08-22 06:15] LABS: Basophils # 0.1 10*3/uL (0.0-0.2); Basophils % 0.7 % (0.0-0.8); Eosinophils # 0.5 10*3/uL (0.0-0.87); Hematocrit 26.4 VOL% (42.0-52.0); Hemoglobin 8.7 GM/DL (14.0-18.0); Immature Granulocytes % 0.4 %; Immature Granulocytes Absolute 0.04 #; Lymphocytes # 2.7 10*3/uL (1.4-4.0); Mean Corpuscular Hemoglobin 31 PG (27-34); Mean Platelet Volume 12.3 FL (9.6-12.0); Monocytes # 0.8 10*3/uL (0.11-0.8); Monocytes % 7.7 % (1.7-12.7); Neutrophils # 6.6 10*3/uL (1.4-7.4); Neutrophils % 61.2 % (38.7-73.9); Platelet Count 161 T/CUMM (130-400); Red Blood Count 2.84 MC/CUMM (3.8-5.5); Red Cell Distribution Width 17.8 % (9.3-17.3); White Blood Count 10.8 T/CUMM (4-12)
[2017-08-22 06:57] LABS: Calcium 9.1 MG/DL (8.5-10.1); Osmolality,Calculated 293.3 MOS/KG (273-304); Potassium 3.7 MMOL/L (3.5-5.1)
[2017-08-22] MEDS: ALBUTEROL 2.5 MG/3 ML NEB RESP TX SCH ×3 (07:38→15:33)
[2017-08-22] MEDS: ISOSORBIDE DINITRATE 20 MG TABLET PEG SCH (08:30)
[2017-08-22] MEDS: amLODIPine 10 MG TABLET PEG SCH (08:30)
[2017-08-22] MEDS: LOSARTAN/HCTZ 50-12.5 MG TABLET PEG SCH (08:30)
[2017-08-22] MEDS: PANTOPRAZOLE 40 MG VIAL IV SCH (08:31)
[2017-08-22] MEDS ORDERED: VANCOMYCIN INJ 500 MG in SODIUM CHLORIDE 0.9% 100 ML IV ONE (16:00)
[2017-08-22 16:42] VITALS: BP 135/82
== END 2017-08-22 17:20 | DRG 377 ==
LOC: EDBD → EDUNIT# → N.ED 17:59 → SUATTDRO 21:00 → N.EDINP 21:00 → N.CC 21:29 → N.5E 08-19 14:30
PROVIDERS: ADMIT Internal Medicine Cardiovascular Disease; ATTEND Internal Medicine

== ENCOUNTER 2017-10-09 11:20 | Inpatient (IN) ==
[2017-10-09] MEDS ORDERED: LEVOFLOXACIN INJ 750 MG in PREMIX 1 EACH IV STA (11:46)
[2017-10-09] MEDS ORDERED: SODIUM CHLORIDE 0.9% 1,000 ML IV STA (11:46)
[2017-10-09 12:04] LABS: Basophils # 0.1 10*3/uL (0.0-0.2); Basophils % 0.4 % (0.0-0.8); Eosinophils # 0.1 10*3/uL (0.0-0.87); Eosinophils % 0.3 % (0.00-10.9); Hematocrit 25.8 VOL% (42.0-52.0); Hemoglobin 8.8 GM/DL (14.0-18.0); Immature Granulocytes % 1.1 %; Immature Granulocytes Absolute 0.25 #; Lymphocytes # 1.9 10*3/uL (1.4-4.0); Mean Corpuscular HGB Conc 34.1 GM/DL (32-36); Mean Corpuscular Hemoglobin 33 PG (27-34); Mean Corpuscular Volume 95.2 FL (87-102); Mean Platelet Volume 12.7 FL (9.6-12.0); Monocytes # 1.7 10*3/uL (0.11-0.8); Monocytes % 7.3 % (1.7-12.7); Neutrophils # 19.7 10*3/uL (1.4-7.4); Neutrophils % 82.9 % (38.7-73.9); Platelet Count 235 T/CUMM (130-400); Red Blood Count 2.71 MC/CUMM (3.8-5.5); Red Cell Distribution Width 17.1 % (9.3-17.3); White Blood Count 23.8 T/CUMM (4-12)
[2017-10-09 12:19] LABS: Apearance,Urine CLOUDY (Clear); Bacteria,Urine Few /HPF (Few); Bilirubin,Urine Negative (Negative); Blood, Urine Small mg/dL (Negative); Glucose,Urine (UA) Negative (Negative); Ketones,Urine Negative (Negative); Nitrite,Urine Negative (Negative); Protein,Urine 100 MG/DL; RBC,Urine 2892 /HPF (0-4); Urine Color Yellow (Yellow); Urine Specific Gravity 1.015 (1.001-1.035); Urine Urobilinogen < 2.0 EU/DL (0.2-1.0); WBC,Urine 16306 /HPF (0-6)
[2017-10-09 12:23] LABS: Alanine Aminotransferase 28 U/L (16-61); Alkaline Phosphatase 167 U/L (45-117); Aspartate Amino Transferase 40 U/L (0-37); Blood Urea Nitrogen 59 MG/DL (7-18); Glucose 393 MG/DL (74-106); Osmolality,Calculated 298.4 MOS/KG (273-304); Sodium 133 MMOL/L (136-145); Total Protein 6.8 G/DL (6.4-8.3)
[2017-10-09 12:25] LABS: Potassium 2.4 MMOL/L (3.5-5.1)
[2017-10-09 12:27] LABS: Lactic Acid 2.3 MMOL/L (0.4-2.0)
[2017-10-09] MEDS ORDERED: SODIUM CHLOR 0.9% KCL 20 MEQ 20 MEQ/1,000 ML BAG IV SCH (12:30)
[2017-10-09 12:31] LABS: Anisocytosis 1+; Band Neutrophils 20 % (0-10); Eosinophils 1 % (0-10); Lymphocytes 8 % (20-55); Platelet Estimate Normal; Segmented Neutrophils 65 % (50-85); Total Cells Counted 100
[2017-10-09 12:32] LABS: Macrocytosis Slight
[2017-10-09] MEDS ORDERED: POTASSIUM CHLORIDE RIDER 100 ML IV ONE (12:40)
[2017-10-09] MEDS: POTASSIUM CHLORIDE RIDER 10 MEQ in PREMIX 1 EACH IV SCH ×4 (13:07→19:59)
[2017-10-09] MEDS ORDERED: SODIUM CHLORIDE 0.9% 1,850 ML IV ONE (14:31)
[2017-10-09] MEDS: PIPERACILLIN/TAZOBACTAM 3,375 MG in SODIUM CHLORIDE 0.9% 100 ML IV SCH (15:19)
[2017-10-09] MEDS ORDERED: GLUCAGON 1 MG VIAL IM PRN (15:51)
[2017-10-09] MEDS ORDERED: DEXTROSE 50% 25 GM/50 ML VIAL IV PRN (15:51)
[2017-10-09] MEDS ORDERED: EPOETIN ALFA 10,000 UNIT/1 ML VIAL IV PRN (17:51)
[2017-10-09] MEDS: SODIUM CHLORIDE 0.9% 1,000 ML IV SCH (18:29)
[2017-10-09 19:27] LABS: Calcium 7.3 MG/DL (8.5-10.1); Osmolality,Calculated 295.2 MOS/KG (273-304)
[2017-10-09] MEDS: INSULIN REGULAR 100 UNIT/ML SUBCUT SCH ×2 (21:07→23:50)
[2017-10-09] MEDS ORDERED: ETOMIDATE 20 MG/10 ML VIAL IV ONE ×2 (22:02→22:20)
[2017-10-09] MEDS ORDERED: VECURONIUM 10 MG VIAL IV ONE ×2 (22:02→22:20)
[2017-10-09] MEDS ORDERED: PROPOFOL 1,000 MG/100 ML BOTTLE IV ONE (22:10)
[2017-10-09] MEDS ORDERED: FUROSEMIDE 40 MG/4 ML VIAL IV ONE (22:20)
[2017-10-09] MEDS ORDERED: ALBUTEROL/IPRATROPIUM 3 ML NEB RESP TX PRN (22:20)
[2017-10-09] MEDS: METOPROLOL TARTRATE 100 MG TABLET PEG SCH (22:41)
[2017-10-09 23:25] LABS: Calcium 7.8 MG/DL (8.5-10.1); Osmolality,Calculated 292.4 MOS/KG (273-304); Potassium 3.1 MMOL/L (3.5-5.1)
[2017-10-09 23:26] LABS: ABG Base Excess -1.1 MMOL/L (-2.5-2.5); ABG HCO3 23.5 MMOL/L (20-26); ABG Oxygen Saturation 99.2 % (95-100); ABG PCO2 40.5 MM HG (35-48); ABG PH 7.379 (7.35-7.45); ABG TCO2 21.8 MMOL/L (23-27); Allen Test Positive; Pt O2 Delivery Device Ventilator
[2017-10-09] MEDS: SEVELAMER CARBONATE POWDER 2.4 GM PACK PEG SCH (23:50)
[2017-10-10] MEDS: POTASSIUM CHLORIDE RIDER 10 MEQ in PREMIX 1 EACH IV SCH (00:09)
[2017-10-10] MEDS: PROPOFOL 1,000 MG/100 ML BOTTLE IV SCH ×3 (00:10→22:36)
[2017-10-10] MEDS: PIPERACILLIN/TAZOBACTAM 3,375 MG in SODIUM CHLORIDE 0.9% 100 ML IV SCH ×2 (00:17→12:55)
[2017-10-10 03:52] LABS: ABG Base Excess -1.2 MMOL/L (-2.5-2.5); ABG HCO3 23.5 MMOL/L (20-26); ABG Oxygen Saturation 99.9 % (95-100); ABG PCO2 33.6 MM HG (35-48); ABG PH 7.436 (7.35-7.45); ABG TCO2 20.7 MMOL/L (23-27)
[2017-10-10] MEDS: fentaNYL 100 MCG/2 ML VIAL IV PRN (04:47)
[2017-10-10 05:15] LABS: Basophils # 0.1 10*3/uL (0.0-0.2); Basophils % 0.3 % (0.0-0.8); Eosinophils # 0.1 10*3/uL (0.0-0.87); Eosinophils % 0.7 % (0.00-10.9); Hematocrit 28.8 VOL% (42.0-52.0); Hemoglobin 9.7 GM/DL (14.0-18.0); Immature Granulocytes % 1.3 %; Immature Granulocytes Absolute 0.29 #; Lymphocytes # 1.6 10*3/uL (1.4-4.0); Lymphocytes % 7.2 % (21.2-54.2); Mean Corpuscular HGB Conc 33.7 GM/DL (32-36); Mean Corpuscular Hemoglobin 32 PG (27-34); Mean Platelet Volume 12.6 FL (9.6-12.0); Monocytes # 1.5 10*3/uL (0.11-0.8); Monocytes % 7.2 % (1.7-12.7); Neutrophils # 17.9 10*3/uL (1.4-7.4); Neutrophils % 83.3 % (38.7-73.9); Platelet Count 204 T/CUMM (130-400); White Blood Count 21.5 T/CUMM (4-12)
[2017-10-10 05:46] LABS: Band Neutrophils 2 % (0-10); Hypochromasia 1+; Lymphocytes 4 % (20-55); Ovalocytes Slight; Platelet Estimate Adequate; Segmented Neutrophils 90 % (50-85); Total Cells Counted 100
[2017-10-10 05:48] LABS: Calcium 7.9 MG/DL (8.5-10.1); Osmolality,Calculated 295.1 MOS/KG (273-304); Potassium 3.1 MMOL/L (3.5-5.1)
[2017-10-10] MEDS: INSULIN REGULAR 100 UNIT/ML SUBCUT SCH ×3 (05:50→18:24)
[2017-10-10 06:22] LABS: Bilirubin,Total 0.7 MG/DL (0.2-1.0); Osmolality,Calculated 295.1 MOS/KG (273-304); Potassium 3.1 MMOL/L (3.5-5.1); Total Protein 6.8 G/DL (6.4-8.3)
[2017-10-10] MEDS: SEVELAMER CARBONATE POWDER 2.4 GM PACK PEG SCH ×2 (08:00→18:24)
[2017-10-10] MEDS ORDERED: CHLORHEXIDINE 4% SOLN 118 ML BOTTLE TOP ONE (08:22)
[2017-10-10] MEDS ORDERED: VANCOMYCIN INJ 500 MG in SODIUM CHLORIDE 0.9% 100 ML IV PRN (08:27)
[2017-10-10] MEDS: METOPROLOL TARTRATE 100 MG TABLET PEG SCH ×2 (09:00→21:08)
[2017-10-10] MEDS ORDERED: VANCOMYCIN INJ 1,500 MG in SODIUM CHLORIDE 0.9% 500 ML IV ONE (12:00)
[2017-10-10] MEDS: CHLORHEXIDINE 4% SOLN 118 ML BOTTLE TOP SCH (12:15)
[2017-10-10] MEDS: SODIUM CHLORIDE 0.9% 1,000 ML IV SCH (12:56)
[2017-10-10] MEDS: SIMVASTATIN 20 MG TABLET PEG SCH (13:00)
[2017-10-10] MEDS: RIFAMPIN 300 MG CAPSULE PEG SCH (15:10)
[2017-10-11] MEDS: INSULIN REGULAR 100 UNIT/ML SUBCUT SCH ×4 (00:57→18:31)
[2017-10-11] MEDS: PIPERACILLIN/TAZOBACTAM 3,375 MG in SODIUM CHLORIDE 0.9% 100 ML IV SCH ×2 (00:57→12:24)
[2017-10-11 05:10] LABS: ABG Base Excess 0.2 MMOL/L (-2.5-2.5); ABG HCO3 24.6 MMOL/L (20-26); ABG Oxygen Saturation 98.9 % (95-100); ABG PCO2 30.8 MM HG (35-48); ABG PH 7.476 (7.35-7.45); ABG TCO2 19.6 MMOL/L (23-27); Allen Test Positive; Pt O2 Delivery Device Ventilator
[2017-10-11 05:21] LABS: Basophils # 0.1 10*3/uL (0.0-0.2); Basophils % 0.5 % (0.0-0.8); Eosinophils # 0.3 10*3/uL (0.0-0.87); Eosinophils % 1.4 % (0.00-10.9); Hematocrit 25.7 VOL% (42.0-52.0); Hemoglobin 8.8 GM/DL (14.0-18.0); Immature Granulocytes % 0.9 %; Immature Granulocytes Absolute 0.15 #; Lymphocytes # 1.8 10*3/uL (1.4-4.0); Lymphocytes % 10.1 % (21.2-54.2); Mean Corpuscular HGB Conc 34.2 GM/DL (32-36); Mean Corpuscular Hemoglobin 32 PG (27-34); Mean Corpuscular Volume 94.5 FL (87-102); Mean Platelet Volume 12.6 FL (9.6-12.0); Monocytes # 1.4 10*3/uL (0.11-0.8); Monocytes % 8.1 % (1.7-12.7); Neutrophils # 13.7 10*3/uL (1.4-7.4); Platelet Count 241 T/CUMM (130-400); Red Blood Count 2.72 MC/CUMM (3.8-5.5); Red Cell Distribution Width 17.2 % (9.3-17.3); White Blood Count 17.4 T/CUMM (4-12)
[2017-10-11 05:58] LABS: Band Neutrophils 4 % (0-10); Eosinophils 2 % (0-10); Lymphocytes 6 % (20-55); Macrocytosis 1+; Nucleated Red Blood Cells 1 (0-5); Platelet Estimate Normal; Segmented Neutrophils 88 % (50-85); Total Cells Counted 100
[2017-10-11 06:00] LABS: Albumin 1.9 G/DL (3.4-5.0); Calcium 7.9 MG/DL (8.5-10.1); Osmolality,Calculated 298.4 MOS/KG (273-304); Potassium 2.8 MMOL/L (3.5-5.1); Total Protein 6.9 G/DL (6.4-8.3)
[2017-10-11] MEDS: SEVELAMER CARBONATE POWDER 2.4 GM PACK PEG SCH ×2 (08:55→16:09)
[2017-10-11] MEDS: RIFAMPIN 300 MG CAPSULE PEG SCH (08:56)
[2017-10-11] MEDS: METOPROLOL TARTRATE 100 MG TABLET PEG SCH ×2 (08:57→21:59)
[2017-10-11] MEDS: SIMVASTATIN 20 MG TABLET PEG SCH (08:57)
[2017-10-11] MEDS ORDERED: LEVOFLOXACIN INJ 750 MG in PREMIX 1 EACH IV SCH (09:00)
[2017-10-11] MEDS: CHLORHEXIDINE 4% SOLN 118 ML BOTTLE TOP SCH (09:40)
[2017-10-11] MEDS: SODIUM CHLORIDE 0.9% 1,000 ML IV SCH (10:43)
[2017-10-11] MEDS ORDERED: POTASSIUM CHLORIDE 20 MEQ/15 ML UDCUP PER TUBE ONE (15:38)
[2017-10-11] MEDS: HEPARIN 5,000 UNIT/1 ML VIAL SUBCUT SCH (16:15)
[2017-10-11] MEDS: PROPOFOL 1,000 MG/100 ML BOTTLE IV SCH (21:05)
[2017-10-12] MEDS: INSULIN REGULAR 100 UNIT/ML SUBCUT SCH ×4 (00:09→18:10)
[2017-10-12] MEDS: HEPARIN 5,000 UNIT/1 ML VIAL SUBCUT SCH ×2 (04:28→16:05)
[2017-10-12 04:51] LABS: ABG Base Excess -2.3 MMOL/L (-2.5-2.5); ABG HCO3 22.5 MMOL/L (20-26); ABG Oxygen Saturation 99.7 % (95-100); ABG PCO2 32.2 MM HG (35-48); ABG PH 7.431 (7.35-7.45)
[2017-10-12] MEDS: PROPOFOL 1,000 MG/100 ML BOTTLE IV SCH ×3 (05:12→22:32)
[2017-10-12 06:01] LABS: Basophils # 0.1 10*3/uL (0.0-0.2); Basophils % 0.4 % (0.0-0.8); Eosinophils # 0.7 10*3/uL (0.0-0.87); Eosinophils % 3.2 % (0.00-10.9); Hematocrit 25.6 VOL% (42.0-52.0); Hemoglobin 8.8 GM/DL (14.0-18.0); Immature Granulocytes % 0.8 %; Immature Granulocytes Absolute 0.18 #; Lymphocytes # 1.7 10*3/uL (1.4-4.0); Lymphocytes % 7.5 % (21.2-54.2); Mean Corpuscular HGB Conc 34.4 GM/DL (32-36); Mean Corpuscular Hemoglobin 32 PG (27-34); Mean Corpuscular Volume 93.4 FL (87-102); Mean Platelet Volume 12.4 FL (9.6-12.0); Monocytes # 1.1 10*3/uL (0.11-0.8); Monocytes % 4.9 % (1.7-12.7); Neutrophils # 18.5 10*3/uL (1.4-7.4); Neutrophils % 83.2 % (38.7-73.9); Platelet Count 292 T/CUMM (130-400); Red Blood Count 2.74 MC/CUMM (3.8-5.5); Red Cell Distribution Width 17.2 % (9.3-17.3); White Blood Count 22.2 T/CUMM (4-12)
[2017-10-12 06:26] LABS: Albumin 1.9 G/DL (3.4-5.0); Calcium 8.2 MG/DL (8.5-10.1); Osmolality,Calculated 302.5 MOS/KG (273-304); Potassium 3.7 MMOL/L (3.5-5.1); Total Protein 7.1 G/DL (6.4-8.3)
[2017-10-12 06:27] LABS: Band Neutrophils 1 % (0-10); Eosinophils 6 % (0-10); Giant Platelets Few; Hypochromasia 1+; Lymphocytes 6 % (20-55); Macrocytosis Slight; Ovalocytes Slight; Platelet Estimate Adequate; Segmented Neutrophils 82 % (50-85); Total Cells Counted 100
[2017-10-12] MEDS: SEVELAMER CARBONATE POWDER 2.4 GM PACK PEG SCH (08:30)
[2017-10-12] MEDS: METOPROLOL TARTRATE 100 MG TABLET PEG SCH ×2 (08:30→21:12)
[2017-10-12] MEDS: RIFAMPIN 300 MG CAPSULE PEG SCH (08:30)
[2017-10-12] MEDS: SIMVASTATIN 20 MG TABLET PEG SCH (08:30)
[2017-10-12] MEDS: fentaNYL 100 MCG/2 ML VIAL IV PRN (12:15)
[2017-10-12] MEDS: SKIN HEALING OINT (AQUAPHOR) 50 GM TUBE TOP PRN (12:30)
[2017-10-12] MEDS: CHLORHEXIDINE 4% SOLN 118 ML BOTTLE TOP SCH (12:30)
[2017-10-12] MEDS ORDERED: VANCOMYCIN INJ 500 MG in SODIUM CHLORIDE 0.9% 100 ML IV ONE (21:00)
[2017-10-13] MEDS: INSULIN REGULAR 100 UNIT/ML SUBCUT SCH ×4 (00:05→17:40)
[2017-10-13] MEDS: HEPARIN 5,000 UNIT/1 ML VIAL SUBCUT SCH ×2 (04:01→15:40)
[2017-10-13 04:14] LABS: Allen Test Positive; Pt O2 Delivery Device Ventilator
[2017-10-13 04:16] LABS: ABG Base Excess 4.3 MMOL/L (-2.5-2.5); ABG HCO3 26.9 MMOL/L (20-26); ABG Oxygen Saturation 98.8 % (95-100); ABG PCO2 32.6 MM HG (35-48); ABG PH 7.535 (7.35-7.45); ABG PO2 188.8 MM HG (80-95); ABG TCO2 27.9 MMOL/L (23-27)
[2017-10-13] MEDS: PROPOFOL 1,000 MG/100 ML BOTTLE IV SCH ×3 (04:39→21:30)
[2017-10-13 05:31] LABS: Basophils # 0.1 10*3/uL (0.0-0.2); Basophils % 0.5 % (0.0-0.8); Eosinophils # 0.6 10*3/uL (0.0-0.87); Eosinophils % 3.3 % (0.00-10.9); Hematocrit 26.7 VOL% (42.0-52.0); Hemoglobin 9.2 GM/DL (14.0-18.0); Immature Granulocytes % 0.8 %; Immature Granulocytes Absolute 0.14 #; Lymphocytes # 2.4 10*3/uL (1.4-4.0); Lymphocytes % 13.9 % (21.2-54.2); Mean Corpuscular HGB Conc 34.5 GM/DL (32-36); Mean Corpuscular Hemoglobin 32 PG (27-34); Mean Corpuscular Volume 92.7 FL (87-102); Mean Platelet Volume 12.9 FL (9.6-12.0); Monocytes % 5.9 % (1.7-12.7); Neutrophils # 13.2 10*3/uL (1.4-7.4); Neutrophils % 75.6 % (38.7-73.9); Platelet Count 253 T/CUMM (130-400); Red Blood Count 2.88 MC/CUMM (3.8-5.5); Red Cell Distribution Width 17.2 % (9.3-17.3); White Blood Count 17.5 T/CUMM (4-12)
[2017-10-13 06:06] LABS: Albumin 1.9 G/DL (3.4-5.0); Bilirubin,Total 1.3 MG/DL (0.2-1.0); Calcium 8.4 MG/DL (8.5-10.1); Osmolality,Calculated 293.3 MOS/KG (273-304); Potassium 3.6 MMOL/L (3.5-5.1); Total Protein 7.2 G/DL (6.4-8.3)
[2017-10-13] MEDS: RIFAMPIN 300 MG CAPSULE PEG SCH (09:15)
[2017-10-13] MEDS: METOPROLOL TARTRATE 100 MG TABLET PEG SCH ×2 (09:15→21:13)
[2017-10-13] MEDS: SIMVASTATIN 20 MG TABLET PEG SCH (09:15)
[2017-10-13] MEDS: fentaNYL 100 MCG/2 ML VIAL IV PRN ×2 (10:30→17:20)
[2017-10-13] MEDS: CHLORHEXIDINE 4% SOLN 118 ML BOTTLE TOP SCH (10:45)
[2017-10-13] MEDS: hydrALAZINE 20 MG/1 ML VIAL IV PRN (16:30)
[2017-10-14] MEDS: INSULIN REGULAR 100 UNIT/ML SUBCUT SCH ×4 (00:27→18:33)
[2017-10-14] MEDS: hydrALAZINE 20 MG/1 ML VIAL IV PRN ×2 (00:28→18:33)
[2017-10-14 03:35] LABS: ABG Base Excess 3.1 MMOL/L (-2.5-2.5); ABG HCO3 27.3 MMOL/L (20-26); ABG Oxygen Saturation 99.7 % (95-100); ABG PCO2 37.2 MM HG (35-48); ABG PH 7.467 (7.35-7.45); ABG TCO2 24.7 MMOL/L (23-27)
[2017-10-14] MEDS: HEPARIN 5,000 UNIT/1 ML VIAL SUBCUT SCH ×2 (04:54→17:55)
[2017-10-14] MEDS: PROPOFOL 1,000 MG/100 ML BOTTLE IV SCH ×3 (04:55→22:36)
[2017-10-14 05:16] LABS: Basophils # 0.1 10*3/uL (0.0-0.2); Basophils % 0.7 % (0.0-0.8); Eosinophils # 0.7 10*3/uL (0.0-0.87); Eosinophils % 4.8 % (0.00-10.9); Hematocrit 27.5 VOL% (42.0-52.0); Immature Granulocytes Absolute 0.15 #; Lymphocytes # 2.3 10*3/uL (1.4-4.0); Lymphocytes % 15.6 % (21.2-54.2); Mean Corpuscular HGB Conc 32.7 GM/DL (32-36); Mean Corpuscular Hemoglobin 32 PG (27-34); Mean Corpuscular Volume 97.2 FL (87-102); Mean Platelet Volume 12.8 FL (9.6-12.0); Monocytes # 1.1 10*3/uL (0.11-0.8); Monocytes % 7.3 % (1.7-12.7); Neutrophils # 10.5 10*3/uL (1.4-7.4); Neutrophils % 70.6 % (38.7-73.9); Platelet Count 313 T/CUMM (130-400); Red Blood Count 2.83 MC/CUMM (3.8-5.5); Red Cell Distribution Width 17.1 % (9.3-17.3); White Blood Count 14.9 T/CUMM (4-12)
[2017-10-14 05:55] LABS: Albumin 1.9 G/DL (3.4-5.0); Bilirubin,Total 1.3 MG/DL (0.2-1.0); Calcium 8.7 MG/DL (8.5-10.1); Osmolality,Calculated 298.4 MOS/KG (273-304); Potassium 3.9 MMOL/L (3.5-5.1)
[2017-10-14] MEDS: RIFAMPIN 300 MG CAPSULE PEG SCH (08:19)
[2017-10-14] MEDS: METOPROLOL TARTRATE 100 MG TABLET PEG SCH ×2 (08:19→21:57)
[2017-10-14] MEDS: SIMVASTATIN 20 MG TABLET PEG SCH (08:19)
[2017-10-14] MEDS: SKIN HEALING OINT (AQUAPHOR) 50 GM TUBE TOP PRN (08:20)
[2017-10-14] MEDS: CHLORHEXIDINE 4% SOLN 118 ML BOTTLE TOP SCH (08:20)
[2017-10-15] MEDS: INSULIN REGULAR 100 UNIT/ML SUBCUT SCH ×4 (00:17→18:52)
[2017-10-15] MEDS: fentaNYL 100 MCG/2 ML VIAL IV PRN (03:08)
[2017-10-15 03:15] LABS: ABG Base Excess 3.6 MMOL/L (-2.5-2.5); ABG HCO3 27.3 MMOL/L (20-26); ABG PCO2 37.8 MM HG (35-48); ABG PH 7.477 (7.35-7.45); ABG PO2 203.3 MM HG (80-95); ABG TCO2 28.5 MMOL/L (23-27)
[2017-10-15 04:47] LABS: Basophils # 0.1 10*3/uL (0.0-0.2); Basophils % 0.6 % (0.0-0.8); Eosinophils # 0.7 10*3/uL (0.0-0.87); Hematocrit 26.4 VOL% (42.0-52.0); Immature Granulocytes % 1.5 %; Immature Granulocytes Absolute 0.21 #; Lymphocytes # 2.2 10*3/uL (1.4-4.0); Lymphocytes % 15.6 % (21.2-54.2); Mean Corpuscular HGB Conc 34.1 GM/DL (32-36); Mean Corpuscular Hemoglobin 32 PG (27-34); Mean Platelet Volume 12.8 FL (9.6-12.0); Monocytes # 0.9 10*3/uL (0.11-0.8); Monocytes % 6.7 % (1.7-12.7); NRBC # 0.03 10*3/uL; Neutrophils # 9.8 10*3/uL (1.4-7.4); Neutrophils % 70.6 % (38.7-73.9); Platelet Count 321 T/CUMM (130-400); Red Blood Count 2.78 MC/CUMM (3.8-5.5); Red Cell Distribution Width 17.4 % (9.3-17.3); White Blood Count 13.9 T/CUMM (4-12)
[2017-10-15 05:16] LABS: Osmolality,Calculated 299.5 MOS/KG (273-304); Potassium 4.5 MMOL/L (3.5-5.1)
[2017-10-15] MEDS: PROPOFOL 1,000 MG/100 ML BOTTLE IV SCH ×3 (05:19→22:30)
[2017-10-15] MEDS: HEPARIN 5,000 UNIT/1 ML VIAL SUBCUT SCH ×2 (05:20→16:49)
[2017-10-15] MEDS: hydrALAZINE 20 MG/1 ML VIAL IV PRN (06:29)
[2017-10-15] MEDS: SIMVASTATIN 20 MG TABLET PEG SCH (08:58)
[2017-10-15] MEDS: METOPROLOL TARTRATE 100 MG TABLET PEG SCH ×2 (08:58→21:42)
[2017-10-15] MEDS: RIFAMPIN 300 MG CAPSULE PEG SCH (08:58)
[2017-10-15] MEDS: CHLORHEXIDINE 4% SOLN 118 ML BOTTLE TOP SCH (09:03)
[2017-10-15] MEDS ORDERED: CLINDAMYCIN INJ 900 MG in PREMIX 1 EACH IV ONE (12:02)
[2017-10-15] MEDS ORDERED: VANCOMYCIN INJ 500 MG in SODIUM CHLORIDE 0.9% 100 ML IV ONE (21:00)
[2017-10-16] MEDS: INSULIN REGULAR 100 UNIT/ML SUBCUT SCH ×3 (01:05→12:48)
[2017-10-16 04:38] LABS: Allen Test Positive; Pt O2 Delivery Device Ventilator
[2017-10-16 04:39] LABS: ABG Base Excess 2.3 MMOL/L (-2.5-2.5); ABG HCO3 26.3 MMOL/L (20-26); ABG PCO2 38.3 MM HG (35-48); ABG PH 7.455 (7.35-7.45); ABG PO2 88.1 MM HG (80-95); ABG TCO2 27.5 MMOL/L (23-27)
[2017-10-16 05:05] LABS: Basophils # 0.1 10*3/uL (0.0-0.2); Basophils % 0.7 % (0.0-0.8); Eosinophils # 0.7 10*3/uL (0.0-0.87); Eosinophils % 4.1 % (0.00-10.9); Hematocrit 28.8 VOL% (42.0-52.0); Immature Granulocytes % 1.2 %; Immature Granulocytes Absolute 0.19 #; Lymphocytes # 3.3 10*3/uL (1.4-4.0); Lymphocytes % 21.1 % (21.2-54.2); Mean Corpuscular HGB Conc 31.3 GM/DL (32-36); Mean Corpuscular Hemoglobin 31 PG (27-34); Mean Corpuscular Volume 98.6 FL (87-102); Mean Platelet Volume 12.6 FL (9.6-12.0); Monocytes # 1.2 10*3/uL (0.11-0.8); Monocytes % 7.6 % (1.7-12.7); Neutrophils # 10.3 10*3/uL (1.4-7.4); Neutrophils % 65.3 % (38.7-73.9); Platelet Count 374 T/CUMM (130-400); Red Blood Count 2.92 MC/CUMM (3.8-5.5); Red Cell Distribution Width 17.9 % (9.3-17.3); White Blood Count 15.7 T/CUMM (4-12)
[2017-10-16 05:38] LABS: Calcium 9.2 MG/DL (8.5-10.1); Osmolality,Calculated 306.4 MOS/KG (273-304); Potassium 5.3 MMOL/L (3.5-5.1)
[2017-10-16] MEDS: HEPARIN 5,000 UNIT/1 ML VIAL SUBCUT SCH (05:53)
[2017-10-16] MEDS ORDERED: CLINDAMYCIN INJ 900 MG in PREMIX 1 EACH IV ONE (08:00)
[2017-10-16] MEDS ORDERED: LIDOCAINE 1%/EPI INJ 20 ML VIAL ONE (08:20)
[2017-10-16] MEDS ORDERED: BUPIVACAINE MPF 0.25% 30 ML VIAL ONE (08:20)
[2017-10-16] MEDS ORDERED: HEPARIN 5,000 UNIT/1 ML VIAL ONE (08:20)
[2017-10-16] MEDS ORDERED: MIDAZOLAM 2 MG/2 ML VIAL ONE (10:23)
[2017-10-16] MEDS ORDERED: SEVOFLURANE 1 UNIT/15 MINUTE INH ONE (10:23)
[2017-10-16] MEDS ORDERED: ROCURONIUM 100 MG/10 ML VIAL IV ONE (10:23)
[2017-10-16] MEDS ORDERED: fentaNYL 100 MCG/2 ML VIAL ONE (10:23)
[2017-10-16] MEDS: hydrALAZINE 20 MG/1 ML VIAL IV PRN (10:34)
[2017-10-16] MEDS: METOPROLOL TARTRATE 100 MG TABLET PEG SCH (10:38)
[2017-10-16] MEDS: SIMVASTATIN 20 MG TABLET PEG SCH (10:39)
[2017-10-16] MEDS: RIFAMPIN 300 MG CAPSULE PEG SCH (10:40)
[2017-10-16] MEDS: CHLORHEXIDINE 4% SOLN 118 ML BOTTLE TOP SCH (10:43)
[2017-10-16] MEDS: PROPOFOL 1,000 MG/100 ML BOTTLE IV SCH (10:43)
[2017-10-16] MEDS: fentaNYL 100 MCG/2 ML VIAL IV PRN (11:34)
[2017-10-16] MEDS ORDERED: ACETAMINOPHEN 325 MG/10.15 ML UDCUP PO PRN (11:49)
[2017-10-16] MEDS: SKIN HEALING OINT (AQUAPHOR) 50 GM TUBE TOP PRN (13:52)
[2017-10-16] MEDS ORDERED: VANCOMYCIN INJ 500 MG in SODIUM CHLORIDE 0.9% 100 ML IV ONE (15:00)
[2017-10-16 15:23] VITALS: BP 94/54
== END 2017-10-16 15:52 | DRG 314 ==
LOC: EDBD → EDUNIT# → N.ED 11:20 → N.EDINP 14:18 → SUATTDRO 14:18 → N.ICU 19:49
PROVIDERS: ADMIT Internal Medicine Cardiovascular Disease; ATTEND Internal Medicine

== ENCOUNTER 2018-03-18 19:01 | Inpatient (IN) ==
[2018-03-18] MEDS ORDERED: methylPREDNISolone SOD SUC 125 MG/2 ML VIAL IV STA (19:40)
[2018-03-18] MEDS ORDERED: ONDANSETRON 4 MG/2 ML VIAL IV STA (19:40)
[2018-03-18] MEDS ORDERED: cefTRIAXone 1,000 MG in SODIUM CHLORIDE 0.9% 100 ML IV STA (19:40)
[2018-03-18] MEDS ORDERED: ALBUTEROL NEB SOLN 5 MG/ML 20 ML/BOTTLE RESP TX SCH (20:00)
[2018-03-18 20:10] LABS: ABG Base Excess -2.4 MMOL/L (-2.5-2.5); ABG HCO3 22.4 MMOL/L (20-26); ABG Oxygen Saturation 99.7 % (95-100); ABG PH 7.392 (7.35-7.45); ABG TCO2 19.2 MMOL/L (23-27)
[2018-03-18 20:13] LABS: Basophils # 0.1 10*3/uL (0.0-0.2); Basophils % 0.2 % (0.0-0.8); Hemoglobin 12.5 GM/DL (14.0-18.0); Immature Granulocytes % 0.7 %; Immature Granulocytes Absolute 0.15 #; Lymphocytes # 0.9 10*3/uL (1.4-4.0); Lymphocytes % 3.8 % (21.2-54.2); Mean Corpuscular HGB Conc 32.9 GM/DL (32-36); Mean Corpuscular Hemoglobin 34 PG (27-34); Mean Corpuscular Volume 102.2 FL (87-102); Mean Platelet Volume 14.4 FL (9.6-12.0); Monocytes # 1.5 10*3/uL (0.11-0.8); Monocytes % 6.9 % (1.7-12.7); Neutrophils # 19.8 10*3/uL (1.4-7.4); Neutrophils % 88.4 % (38.7-73.9); Platelet Count 107 T/CUMM (130-400); Red Blood Count 3.72 MC/CUMM (3.8-5.5); Red Cell Distribution Width 15.1 % (9.3-17.3); White Blood Count 22.4 T/CUMM (4-12)
[2018-03-18 20:22] LABS: INR 1.1
[2018-03-18 20:31] LABS: Alanine Aminotransferase 99 U/L (16-61); Albumin 3.2 G/DL (3.4-5.0); Alkaline Phosphatase 183 U/L (45-117); Aspartate Amino Transferase 77 U/L (0-37); Blood Urea Nitrogen 50 MG/DL (7-18); Calcium 9.9 MG/DL (8.5-10.1); Glucose 173 MG/DL (74-106); Osmolality,Calculated 291.7 MOS/KG (273-304); Potassium 3.9 MMOL/L (3.5-5.1); Sodium 138 MMOL/L (136-145); Total Protein 8.3 G/DL (6.4-8.3)
[2018-03-18] MEDS ORDERED: VANCOMYCIN INJ 1,000 MG in SODIUM CHLORIDE 0.9% 250 ML IV STA (20:34)
[2018-03-18 20:38] LABS: Apearance,Urine Slightly Hazy (Clear); Bacteria,Urine Few /HPF (Few); Bilirubin,Urine Negative (Negative); Blood, Urine Moderate mg/dL (Negative); Glucose,Urine (UA) Negative (Negative); Hyaline Casts,Urine 7 /LPF (0-3); Ketones,Urine Negative (Negative); Nitrite,Urine Negative (Negative); Protein,Urine 100 MG/DL; RBC,Urine 73 /HPF (0-4); Urine Color Yellow (Yellow); Urine Specific Gravity 1.011 (1.001-1.035); Urine Urobilinogen < 2.0 EU/DL (0.2-1.0); WBC,Urine 82 /HPF (0-6)
[2018-03-18 20:41] LABS: Anisocytosis 1+; Eosinophils 3 % (0-10); Lymphocytes 10 % (20-55); Segmented Neutrophils 82 % (50-85); Total Cells Counted 100
[2018-03-18 20:44] LABS: Acanthocytes Few; Platelet Estimate Decreased; Poikilocytosis Slight
[2018-03-19] MEDS ORDERED: ONDANSETRON 4 MG/2 ML VIAL IV PRN (00:41)
[2018-03-19] MEDS ORDERED: ACETAMINOPHEN 325 MG TABLET PEG PRN ×3 (00:41→14:35)
[2018-03-19] MEDS ORDERED: SODIUM CHLORIDE 0.9% 1,000 ML IV SCH (01:00)
[2018-03-19] MEDS ORDERED: GLUCAGON 1 MG VIAL IM PRN (01:11)
[2018-03-19] MEDS ORDERED: DEXTROSE 50% 25 GM/50 ML VIAL IV PRN (01:11)
[2018-03-19] MEDS ORDERED: ALBUTEROL 2.5 MG/3 ML NEB RESP TX PRN (05:23)
[2018-03-19] MEDS ORDERED: HEPARIN 5,000 UNIT/1 ML VIAL SUBCUT SCH (06:00)
[2018-03-19 06:05] LABS: Basophils % 0.1 % (0.0-0.8); Hematocrit 36.6 VOL% (42.0-52.0); Hemoglobin 12.1 GM/DL (14.0-18.0); Immature Granulocytes % 0.6 %; Immature Granulocytes Absolute 0.11 #; Lymphocytes # 0.9 10*3/uL (1.4-4.0); Lymphocytes % 4.7 % (21.2-54.2); Mean Corpuscular HGB Conc 33.1 GM/DL (32-36); Mean Corpuscular Hemoglobin 34 PG (27-34); Mean Corpuscular Volume 101.7 FL (87-102); Monocytes # 0.1 10*3/uL (0.11-0.8); Monocytes % 0.6 % (1.7-12.7); Neutrophils # 18.1 10*3/uL (1.4-7.4); Platelet Count 101 T/CUMM (130-400); Red Cell Distribution Width 15.2 % (9.3-17.3); White Blood Count 19.3 T/CUMM (4-12)
[2018-03-19 06:26] LABS: Band Neutrophils 3 % (0-10); Hypochromasia 1+; Lymphocytes 4 % (20-55); Platelet Estimate Decreased; Segmented Neutrophils 93 % (50-85); Total Cells Counted 100
[2018-03-19 06:29] LABS: Lactic Acid 3.5 MMOL/L (0.4-2.0)
[2018-03-19 06:34] LABS: Albumin 3.2 G/DL (3.4-5.0); Bilirubin,Total 0.7 MG/DL (0.2-1.0); Calcium 9.9 MG/DL (8.5-10.1); Osmolality,Calculated 297.7 MOS/KG (273-304); Potassium 4.3 MMOL/L (3.5-5.1); Total Protein 8.3 G/DL (6.4-8.3)
[2018-03-19] MEDS: INSULIN LISPRO 100 UNIT/ML SUBCUT SCH ×3 (06:38→18:14)
[2018-03-19] MEDS: ALBUTEROL/IPRATROPIUM 3 ML NEB RESP TX SCH ×3 (07:34→19:55)
[2018-03-19] MEDS ORDERED: ENOXAPARIN 30 MG/0.3 ML SYRINGE SUBCUT SCH (09:00)
[2018-03-19] MEDS ORDERED: amLODIPine 5 MG TABLET PEG SCH (15:00)
[2018-03-19] MEDS: CHOLECALCIFEROL 5,000 UNIT TABLET PEG SCH (16:22)
[2018-03-19] MEDS: METOPROLOL TARTRATE 100 MG TABLET PEG SCH ×2 (16:22→21:41)
[2018-03-19] MEDS: BACITRACIN OINT 0.9 GM PACK TOP SCH (16:22)
[2018-03-19] MEDS ORDERED: cefTRIAXone 1,000 MG in SYRINGE 1 EACH IV SCH (21:00)
[2018-03-19] MEDS: LORazepam 1 MG TABLET PEG SCH (21:41)
[2018-03-20] MEDS: INSULIN LISPRO 100 UNIT/ML SUBCUT SCH ×4 (00:40→18:59)
[2018-03-20] MEDS: ALBUTEROL/IPRATROPIUM 3 ML NEB RESP TX SCH ×4 (01:44→19:41)
[2018-03-20 06:12] LABS: Calcium 9.8 MG/DL (8.5-10.1); Osmolality,Calculated 312.5 MOS/KG (273-304); Potassium 4.2 MMOL/L (3.5-5.1); Prealbumin 25.7 MG/DL (20-40)
[2018-03-20] MEDS ORDERED: VANCOMYCIN INJ 500 MG in SODIUM CHLORIDE 0.9% 100 ML IV PRN (08:30)
[2018-03-20] MEDS ORDERED: VANCOMYCIN INJ 1,000 MG in SODIUM CHLORIDE 0.9% 250 ML IV PRN (15:00)
[2018-03-20] MEDS: METOPROLOL TARTRATE 100 MG TABLET PEG SCH ×2 (15:39→21:30)
[2018-03-20] MEDS: CHOLECALCIFEROL 5,000 UNIT TABLET PEG SCH (17:18)
[2018-03-20] MEDS ORDERED: VANCOMYCIN INJ 500 MG in SODIUM CHLORIDE 0.9% 100 ML IV ONE (18:00)
[2018-03-20] MEDS: BACITRACIN OINT 0.9 GM PACK TOP SCH (19:00)
[2018-03-20] MEDS: LORazepam 1 MG TABLET PEG SCH (21:30)
[2018-03-21] MEDS: INSULIN LISPRO 100 UNIT/ML SUBCUT SCH ×4 (00:50→18:32)
[2018-03-21] MEDS: ALBUTEROL/IPRATROPIUM 3 ML NEB RESP TX SCH ×3 (01:03→15:04)
[2018-03-21 05:45] LABS: Basophils % 0.2 % (0.0-0.8); Eosinophils # 0.1 10*3/uL (0.0-0.87); Hematocrit 35.5 VOL% (42.0-52.0); Hemoglobin 11.5 GM/DL (14.0-18.0); Immature Granulocytes % 0.4 %; Immature Granulocytes Absolute 0.05 #; Lymphocytes % 21.8 % (21.2-54.2); Mean Corpuscular HGB Conc 32.4 GM/DL (32-36); Mean Corpuscular Hemoglobin 33 PG (27-34); Mean Corpuscular Volume 101.4 FL (87-102); Mean Platelet Volume 14.6 FL (9.6-12.0); Monocytes # 0.8 10*3/uL (0.11-0.8); Neutrophils # 9.8 10*3/uL (1.4-7.4); Neutrophils % 70.6 % (38.7-73.9); Platelet Count 103 T/CUMM (130-400); Red Cell Distribution Width 15.2 % (9.3-17.3); White Blood Count 13.9 T/CUMM (4-12)
[2018-03-21 06:07] LABS: Calcium 9.6 MG/DL (8.5-10.1); Osmolality,Calculated 292.7 MOS/KG (273-304); Potassium 3.8 MMOL/L (3.5-5.1)
[2018-03-21] MEDS ORDERED: FLUCONAZOLE 40 MG/ML 35 ML/BOTTLE PEG SCH (09:00)
[2018-03-21] MEDS: METOPROLOL TARTRATE 100 MG TABLET PEG SCH (10:37)
[2018-03-21] MEDS: CHOLECALCIFEROL 5,000 UNIT TABLET PEG SCH (10:39)
[2018-03-21] MEDS: BACITRACIN OINT 0.9 GM PACK TOP SCH (11:00)
[2018-03-21 15:55] VITALS: BP 146/79
== END 2018-03-21 18:45 | DRG 871 ==
LOC: EDUNIT# → EDBD → N.ED 19:01 → N.EDINP 22:24 → N.5E 03-19 00:06
PROVIDERS: ADMIT Internal Medicine; ATTEND Internal Medicine